=== PATIENT | male | born 1975 | race Two or more races ===

== ENCOUNTER 2019-03-29 12:11 | Inpatient (IN) | payer OTHER ==
[~2019-03-29] VITALS: Ht 170.2 cm; Wt 76.2 kg
[2019-03-29] MEDS ORDERED: CLINDAMYCIN 900 MG in IV D5W 50 ML IV ONE (12:30)
[2019-03-29] MEDS ORDERED: PIPERACILLIN /TAZOBACTAM 3.375 G in IV D5W 50 ML IV ONE (12:30)
[2019-03-29] MEDS ORDERED: IV NS 0.9% 1,000 ML BAG IV ONE ×2 (12:30→14:00)
[2019-03-29] MEDS ORDERED: VANCOMYCIN 1 GM in IV D5W 250 ML IV ONE (12:30)
[2019-03-29 12:33] LABS: HEMOGLOBIN 9.4 g/dL (13.5-17.5); LYMPHOCYTES # (AUTO) 0.9 /CMM (0.8-4.8)
[2019-03-29 12:37] LABS: BASOPHILS % (AUTO) 0.2 % (0.0-2.0); EOSINOPHILS % (AUTO) 0.4 % (0.0-6.0); HEMATOCRIT 29 % (39-51); MEAN CORPUSCULAR HGB CONC 33 g/dl (31.0-36.0); MEAN CORPUSCULAR VOLUME 85 fL (80-96); MONOCYTES % (AUTO) 8.7 % (2.0-12.0); NEUTROPHILS # (AUTO) 19.7 /CMM (1.8-8.9); NEUTROPHILS % (AUTO) 86.7 % (43.0-81.0); PLATELET COUNT (AUTO) 91 /CMM (150-450); RED BLOOD CELL COUNT(AUTO) 3.39 MIL/uL (4.5-6.0); WHITE BLOOD COUNT (AUTO) 22.7 K/uL (4.3-11.0)
--- NOTE | 2019-03-29 12:43 | NUR ---
"[id number], FROM HOME, C/O R LEG PAIN x 3 DAYS, NS 500 ML GIVEN BY EMS" pt [id number], pt on monitor, vss, pending md de leon
[2019-03-29 12:44] LABS: SODIUM SERUM 127 mmol/L (136-145)
[2019-03-29 12:46] LABS: CALCIUM, SERUM 8.3 mg/dL (8.5-10.1); CARBON DIOXIDE 23 mmol/L (21-32); CHLORIDE 96 mmol/L (98-107); GLUCOSE 122 mg/dL (74-106); UREA NITROGEN, BLOOD 38 mg/dL (7-18)
[2019-03-29 12:47] LABS: CREATININE 1.7 mg/dL (0.6-1.3)
[2019-03-29 12:51] LABS: ALANINE AMINOTRANSFERASE 26 U/L (12-78); ALBUMIN 1.9 g/dL (3.4-5.0); ALKALINE PHOSPHATASE 160 U/L (46-116); ASPARTATE AMINOTRANSFERASE 34 U/L (15-37); BILIRUBIN,DIRECT 1.5 mg/dL (0.0-0.2); BILIRUBIN,TOTAL 2.2 mg/dL (0.2-1.0); TOTAL PROTEIN, SERUM 6.7 g/dL (6.4-8.2)
--- NOTE | 2019-03-29 13:01 | NUR ---
CALLED NURSING SUP. FOR MS BED
[2019-03-29 13:13] LABS: BAND % (MANUAL) 10 % (0.0-5.0); EOSINOPHILS % (MANUAL) 1 % (0-4); LYMPHOCYTES % (MANUAL) 2 % (16-48); MONOCYTES % (MANUAL) 9 % (0-11.0); NEUTROPHILS % (MANUAL) 78 (42-76)
--- NOTE | 2019-03-29 13:38 | NUR ---
FAX CLINICALS ONCE MD DICTATION IN CHART [phone]
--- NOTE | 2019-03-29 13:39 | NUR ---
verbal auth from medical case manager given: spoke with syl
--- NOTE | 2019-03-29 13:52 | NUR ---
MS [id number]
--- NOTE | 2019-03-29 14:02 | NUR ---
DR.RUTHERFORD MANUEL RESEARCH AFFILIATE
[2019-03-29] MEDS ORDERED: ACETAMINOPHEN 325 MG TABLET PO PRN (14:30)
[2019-03-29] MEDS ORDERED: MAGNESIUM HYDROXIDE 30 ML UDC PO PRN (14:30)
[2019-03-29] MEDS ORDERED: MAG HYDROX/AL HYDROX/SIMETH 30 ML UDC PO PRN (14:30)
[2019-03-29] MEDS ORDERED: ONDANSETRON HCL/PF 4 MG/2 ML VIAL IVP PRN (14:30)
[2019-03-29] MEDS ORDERED: Z GUARD REMEDY 2 OZ OINT TP PRN (14:30)
[2019-03-29] MEDS ORDERED: FEE PK DOSING 1 MIN EA MC ONE (14:33)
--- NOTE | 2019-03-29 14:55 | NUR ---
report given to teja rn for ramonita pt will be transported to 3rd floor ms
--- NOTE | 2019-03-29 14:59 | NUR ---
MS/RN NOTE THE PATIENT IS RECEIVED ON A GURNEY. ASSISTED THE PATIENT TO BED. PATIENT ALERT AND ORIENTED X4. IN ROOM AIR AND DENIES SOB. RESPIRATION REGULAR AND UNLABORED. PATIENT COMPLAINS RIGHT LOWER LEG PAIN 10/10. RIGHT LOWER LEG NOTED TO BE EDEMATOUS, WARM TO TOUCH, OOZING SEROUS FROM RIGHT LOWER LEG. ALS, NOTED THAT RIGHT LOWER LEG HAS SKIN OPENING. LAC G 20 PATENT AND SALINE LOCKED. PATIENT IS GIVEN ORIENTATION TO THE ROOM/UNIT. HE VERBALIZED UNDERSTANDING. THE PATIENT REFUSES FULL SKIN ASSESSMENT. THE ONLY PICTURE AGREED TO HAVE IS THE RIGHT LOWER LEG ONLY FRONTAL VIEW. EXPLAINED RISKS AND BENEFITS BUT THE PATIENT STILL REFUSED FULL SKIN ASSESSMENT. ASLO, THE PATIENT REFUSED TO WEAR HOSPITAL DOWN. BED LOW AND LOCKED. SIDE RAILS UP X3. CALL LIGHT WITHIN REACH. WILL CONTINUE TO MONITOR.
[2019-03-29] MEDS: IV NS 0.9% 1,000 ML IV SCH (15:12)
[2019-03-29 15:51] VITALS: BP 139/83
--- NOTE | 2019-03-29 16:28 | NUR ---
MS/RN NOTE RECEIVED CALL FROM LAB REPORTING LACTIC ACID LEVEL OF 3.1. PAGED DR HAZEL TO INFORM.
--- NOTE | 2019-03-29 16:33 | NUR ---
MS/RN NOTE RECEIVED NEW ORDER FROM DR TREVIÑO TO REPEAT LACTIC ACID LEVEL AT 2230. THE ORDER IS READ BACK, VERIFIED. NOTED AND CARRIED OUT.
[2019-03-29] MEDS: HYDROCODONE/APAP 5/325MG 1 EACH TABLET PO PRN (17:12)
[2019-03-29] MEDS: PIPERACILLIN /TAZOBACTAM 3.375 G in IV D5W 100 ML IV SCH (18:23)
--- NOTE | 2019-03-29 18:59 | NUR ---
MS/RN NOTE THE PATIENT ALERT AND ORIENTED X4. RECEIVING OXYGEN AT 2L/MIN VIA NASAL CANNULA AND SATURATION IS AT 98%. DENIES SOB. RESPIRATION REGULAR AND UNLABORED. PATIENT COMPLAINS RIGHT LOWER LEG PAIN 5/10. PATIENT DOES NOT WANT PAIN MEDICATION AT THIS TIME. LAC G 20 PATENT AND NS INFUSING AT 100ML/HR AND NO S/S INFILTRATION NOTED. BED LOW AND LOCKED. SIDE RAILS UP X3. CALL LIGHT WITHIN REACH. WILL ENDORSE TO STONE GRADER.
--- NOTE | 2019-03-29 19:15 | NUR ---
CHANGE OF SHIFT REPORT Patient in bed, A/O x4. Appears anxious, denies SOB, on Oxygen at 2L via NC. Right leg warmth, erythema and swelling, weeping, and tender to touch. Educate patient on pain scale and pain management, verbalized understanding and will ask the nurse for pain medication if he needs it. Fall precaution maintained.
--- NOTE | 2019-03-29 19:20 | NUR ---
CHANGE OF SHIFT REPORT Patient in bed, A/O x4. Tolerating RA, denies SOB. Patient will be NPO midnight, possible Perma cath placement with Dr. De La Torre, patient and family aware. Right femoral cath intact, no bleeding. Instruction to use call light for assistance, verbalized understanding.
[2019-03-29 20:00] VITALS: BP 97/48
--- NOTE | 2019-03-30 | NUR ---
CRITICAL LAB RESULT 2255: LAB CALLED FOR LACTIC ACID 2.7 2257: Notified [employer] airspace control officer, spoke with Carl Worthy Np with no new orders at this time.
[2019-03-30] MEDS: VANCOMYCIN 1 GM in IV D5W 250 ML IV SCH ×2 (00:48→13:15)
[2019-03-30] MEDS: PIPERACILLIN /TAZOBACTAM 3.375 G in IV D5W 100 ML IV SCH ×3 (02:28→18:12)
[2019-03-30] MEDS: IV NS 0.9% 1,000 ML IV SCH (02:31)
--- NOTE | 2019-03-30 06:24 | NUR ---
END OF SHIFT REPORT Patient in bed, on low flow oxygen at 2L via NC, denies SOB. Right lower leg swelling, warmth, weeping. Applied new gauze and wrapped with Kerlix. Wound consult to follow. IVF infusing, IV abx as scheduled, no fever. Lactic acid trending down. Hourly rounds, maintained safety.
[2019-03-30 06:27] LABS: BASOPHILS % (AUTO) 0.2 % (0.0-2.0); CALCIUM, SERUM 7.5 mg/dL (8.5-10.1); CREATININE 1.3 mg/dL (0.6-1.3); EOSINOPHILS % (AUTO) 0.5 % (0.0-6.0); HEMATOCRIT 28 % (39-51); HEMOGLOBIN 9.3 g/dL (13.5-17.5); LYMPHOCYTES # (AUTO) 1.3 /CMM (0.8-4.8); LYMPHOCYTES % (AUTO) 6.3 % (20.0-44.0); MAGNESIUM 1.6 mg/dL (1.8-2.4); MEAN CORPUSCULAR HGB CONC 33 g/dl (31.0-36.0); MEAN CORPUSCULAR VOLUME 84 fL (80-96); NEUTROPHILS # (AUTO) 16.6 /CMM (1.8-8.9); PHOSPHORUS 3.4 mg/dL (2.5-4.9); PLATELET COUNT (AUTO) 89 /CMM (150-450); POTASSIUM 3.9 mmol/L (3.5-5.1); RED BLOOD CELL COUNT(AUTO) 3.37 MIL/uL (4.5-6.0)
[2019-03-30 08:00] VITALS: BP 106/58
[2019-03-30] MEDS: HYDROCODONE/APAP 5/325MG 1 EACH TABLET PO PRN ×3 (09:11→23:59)
[2019-03-30] MEDS: Magnesium 1GM/D5W 100ML PREMIX 100 ML IV SCH ×2 (10:55→12:13)
--- NOTE | 2019-03-30 11:42 | NUR ---
WOUND CARE CONSULT: PT PRESENTS WITH RT LOWER LEG SEVERE REDNESS WITH DISCOLORATION, EDEMA AND OPEN AREA, PRESENT ON ADMISSION. RECOMMEND DPM CONSULT. DR ROCHA AWARE OF CONSULT REQUEST. XEROFORM WITH ABD PAD AND GENTLE BURN NET IN PLACE. LEG ELEVATED. WILL SEE PRN. CURRENT MEMO SCORE IS 17. Addendum: 03/30/19 at 1143 by CHRISSY HAQUE WNDNU Amended: Links added.
[2019-03-30 16:00] VITALS: BP 113/83
[2019-03-30] MEDS: IV NS 0.9% 1,000 ML IV PRN (16:40)
[2019-03-30] MEDS: LACTOBACILLUS RHAMNOSUS GG 1 EACH CAP.SPRINK PO SCH (16:40)
--- NOTE | 2019-03-30 17:33 | NUR ---
MS/RN NOTE PATIENT VOMITED X1 YELLOW COLOR AND SMALL AMOUNT. PATIENT COMPLAINS OF NAUSEA. ZOFRAN IS GIVEN PER ORDER.
--- NOTE | 2019-03-30 18:43 | NUR ---
MS/RN NOTE THE PATIENT ALERT AND ORIENTED X4. COMPLAINS RIGHT LOWER LEG PAIN 4/10 BUT DOES NOT WANT PAIN MEDICATION AT THIS TIME. RESPIRATION REGULAR AND UNLABORED. IN ROOM AIR AND SATURATION IS AT 97%. DENIES SOB. RIGHT LOWER LEG DRESSING DONE PER ORDER AND THE PATIENT TOLERATED IT WELL. LFA G 20 PATENT AND NS INFUSING AT 100 ML/HR AND NO S/S INFILTRATION NOTED. BED LOW AND LOCKED. SIDE RAILS UP X3. CALL LIGHT WITHIN REACH. WILL ENDORSE TO PRODUCTION TEAM MEMBER.
[2019-03-30 20:00] VITALS: BP 107/63
--- NOTE | 2019-03-30 20:00 | NUR ---
MS/RN OPENING NOTES RECEIVED PATIENT IN BED, AWAKE, BUT RESTING COMFORTABLY IN BED, REPORTED WOULD LIKE TO GET SOME SLEEP. WAS INFORMED DURING INITIAL START OF CARE THAT MRI PROCEDURE WAS ORDERED, CHECKLIST WAS DONE AND PROVIDED BY PATIENT REPORTED NO HISTORY OF ANY DEVICE SUCH PACEMAKER OR OPERATION AND PROCEDURE. PATIENT ON OXYGEN INTERMITTENT. PATIENT WITH NO S/S OF PAIN NO OBSERVE GUARDING OR GRIMACE. PROVIDED FLUIDS. BED LOCKED, CALL LIGHTS WITHIN REACH. WILL MONITOR.
--- NOTE | 2019-03-30 22:30 | NUR ---
MS/RN NOTES PATIENT REFUSED TO HAVE WOUND CARE REPORTED WOULD LIKE TO SLEEP AND GET SOME REST. WILL MONITOR.
--- NOTE | 2019-03-30 23:59 | NUR ---
MS/RN NOTES PAIN MEDICATIONNORCO 5-325 MG PO REQUESTED PATIENT AWOKEN FROM SLEEP WITH MODERATE PAIN IN RIGHT LEGS.WILL MONITOR.
[2019-03-31] MEDS: VANCOMYCIN 1 GM in IV D5W 250 ML IV SCH ×2 (00:51→12:35)
[2019-03-31] MEDS: PIPERACILLIN /TAZOBACTAM 3.375 G in IV D5W 100 ML IV SCH ×3 (02:02→17:00)
--- NOTE | 2019-03-31 04:05 | NUR ---
MS/RN NOTES DRESSING ON RIGHT LEG DRY AND INTACT.
--- NOTE | 2019-03-31 05:41 | NUR ---
MS/RN NOTES PATIENT ALERT, ORIENTED, DENIES PAIN, ALLOWED FOR WOUND DRESSING CHANGE ON RIGHT LEG AND ABLE TO SWAB WOUND FOR CULTURE. PATIENT TOLERATED AND ATTENDED TO HIS NEEDS. WATER AND FLUIDS PROVIDED.
[2019-03-31 06:21] LABS: BASOPHILS % (AUTO) 0.2 % (0.0-2.0); EOSINOPHILS % (AUTO) 0.9 % (0.0-6.0); HEMATOCRIT 31 % (39-51); LYMPHOCYTES # (AUTO) 1.3 /CMM (0.8-4.8); LYMPHOCYTES % (AUTO) 8.1 % (20.0-44.0); MEAN CORPUSCULAR HGB CONC 33 g/dl (31.0-36.0); MEAN CORPUSCULAR VOLUME 84 fL (80-96); MONOCYTES # (AUTO) 1.6 /CMM (0.1-1.30); MONOCYTES % (AUTO) 9.9 % (2.0-12.0); NEUTROPHILS # (AUTO) 12.8 /CMM (1.8-8.9); NEUTROPHILS % (AUTO) 80.9 % (43.0-81.0); PLATELET COUNT (AUTO) 102 /CMM (150-450); RED BLOOD CELL COUNT(AUTO) 3.63 MIL/uL (4.5-6.0); WHITE BLOOD COUNT (AUTO) 15.8 K/uL (4.3-11.0)
--- NOTE | 2019-03-31 06:33 | NUR ---
MS/RN NOTES PATIENT RESTING EVEN AND UNLABORED, ASLEEP, ABLE TO VERBALIZE NEEDS AND INFORMED THAT NO BM FOR THE PAST 2 DAYS , NEEDED MOM OFFERED, PREFERED TO TAKE LATER IN THE DAY. RIGHT LEG REDNESS AND INFLAMED AND DRESSING HAS BEEN CHANGE, IV INFUSION ON LEFT AC W/ NO S/S OF INFILTRATION. WILL MONITOR AND ENDORSE TO AM RN FOR TIFFANIE.
[2019-03-31 06:56] LABS: CALCIUM, SERUM 7.7 mg/dL (8.5-10.1); CREATININE 1.2 mg/dL (0.6-1.3); MAGNESIUM 1.5 mg/dL (1.8-2.4)
--- NOTE | 2019-03-31 07:30 | NUR ---
RN OPENING NOTE PT WAS RECEIVED SLEEPING IN BED AT LOWEST AND LOCKED POSITION WITH SIDE RAILS UP X2, PER NIGHT RN PT IS A/O X4, BREATHING EVEN AND UNLABORED ON RA, NO S/S OF ANY DISTRESS OR PAIN NOTED, IV IS PATENT AND INTACT, SAFETY PRECAUTIONS IN PLACE, CALL LIGHT WITHIN REACH, WILL MONITOR ACCORDINGLY
[2019-03-31] MEDS: HYDROCODONE/APAP 5/325MG 1 EACH TABLET PO PRN ×2 (07:50→20:00)
[2019-03-31 08:00] VITALS: BP 124/64
[2019-03-31] MEDS: LACTOBACILLUS RHAMNOSUS GG 1 EACH CAP.SPRINK PO SCH ×2 (08:26→16:31)
--- NOTE | 2019-03-31 08:45 | NUR ---
RN NOTE MRI WAS CALLED AT THIS TIME WITH NO ANSWER, MESSAGE WAS LEFT REGARDING WHAT TIME THEY WILL BE TAKING THE PATIENT FOR SCAN, AWAITING CALL BACK
[2019-03-31] MEDS: Magnesium 1GM/D5W 100ML PREMIX 100 ML IV SCH ×2 (10:04→10:59)
--- NOTE | 2019-03-31 10:36 | NUR ---
RN NOTE CALLED MRI AGAIN AT THIS TIME, SPOKE TO [facility] WHO STATED THAT THEY WILL BE ABLE TO TAKE THE PATIENT WITHIN THE NEXT HOUR OR SO AFTER THEY DEAL WILL A CURRENT CASE WHO IS RUNNING LATE, WILL AWAIT FOR PT TO BE TAKEN
--- NOTE | 2019-03-31 12:43 | NUR ---
RN NOTE PT TAKEN DOWN FOR MRI AT THIS TIME
[2019-03-31 16:00] VITALS: BP 125/69
[2019-03-31] MEDS ORDERED: GADOTERIDOL 279.3 MG/ML VIAL IV ONE (17:14)
--- NOTE | 2019-03-31 18:23 | NUR ---
RN CLOSING NOTE PT SLEEPING IN BED AT LOWEST AND LOCKED POSITION WITH SIDE RAILS UP X2, A/O X4 BREATHING EVEN AND UNLABORED WITH NO S/S OF ANY DISTRESS OR PAIN, IV IS PATENT AND INTACT, SAFETY PRECAUTIONS IN PLACE, CALL LIGHT WITHIN REACH, ALL NEEDS ATTENDED TO, WILL ENDORSE TO NIGHT RN FOR TIFFANIE. Addendum: 03/31/19 at 1829 by IMTIAZ SORIA RN PLAN FOR SURGICAL INCISION AND DRAINAGE TOMORROW WITH CONSENTS SIGNED
--- NOTE | 2019-03-31 19:23 | NUR ---
MS/RN OPENING NOTES RECEIVED PATIENT RESTING IN BED, ASLEEP BUT EASILY AROUSES, CAN RESPOND, DINNER TRAY UNTOUCHED, RESPIRATIONS EVEN AND UNLABORED. RIGHT LEG WITH DRESSING PLACED. MONITORING FOR ANY CHANGES AND ANY PAIN CONCERNS. BED LOCKED, CALL LIGHTS WITHIN REACH WILL MONITOR.IV ON LFA GAUGE 20 W/NO S/S OF INFILTRATION. RECEIVED REPORT FROM AM RN FOR PROCEDURE BERNARD INCISSION AND DRAINAGE DUE TO MRI WITH ABSCESS. LAST BM TODAY.
--- NOTE | 2019-03-31 19:53 | NUR ---
MS/RN NOTES PATIENT AWAKE, OBSERVE DRESSING ON RIGHT LEG SOILED, REPORTED SOME PAIN IN SITE. WILL PROVIDE MEDICATION FIRST AND WOUND DRESSING CHANGE.
[2019-03-31 20:00] VITALS: BP 133/71
--- NOTE | 2019-03-31 20:56 | NUR ---
MS/RN NOTES PATIENT PROVIDED DRESSING CHANGE, DRESSING IS SOILED, PATIENT ABLE TO COOPERATE AND AGREED FOR THE TREATMENT, AFTER PAIN MEDICATION GIVEN, REPORTED WANT TO GO [place] TO SKLEEP AND PROVIDED BLANKE AND FLUIDS.BED LOCKED, CALL LIGHTS WITHIN REACH, WILL MONITOR.
[2019-03-31] MEDS: IV NS 0.9% 1,000 ML IV PRN (21:08)
--- NOTE | 2019-03-31 22:40 | NUR ---
MS/RN NOTES PATIENT LEFT AC IV SITE OBSERVED REDNESS, , TO REMOVE PREVIOUS IV AND START ANOTHER ONE, PATIENT REFUSE TO HAVE IT REINSERTED ON THE SIDE DISCUSSED IMPORTANCE THAT IV ANTIBIOTC WILL BE ADMINISTERED LATER ON.
[2019-04-01] MEDS: VANCOMYCIN 1 GM in IV D5W 250 ML IV SCH ×2 (00:04→12:52)
--- NOTE | 2019-04-01 01:00 | NUR ---
MS/RN NOTES PATIENT REASSES LEFT FOREARM,WITH NO MORE REDNESS, OFF LOAD EXTREMITIES,AND ABLE TO CHECK FOR PATENCY, IV ANTIBIOTIC ABLE TO BE INFUSED. (IV vANCOMYCIN).
[2019-04-01] MEDS: PIPERACILLIN /TAZOBACTAM 3.375 G in IV D5W 100 ML IV SCH ×3 (02:18→17:33)
--- NOTE | 2019-04-01 06:50 | NUR ---
MS/RN NOTES PATIENT IN BED, AWAKE, ALERT X3, ABLE TO VERBALIZE NEEDS, RESPIRATIONS EVEN AND UNLABORED, RIGHT LEG WITH DRESSING FOR CELLULITIS, ON NPO FOR PROCEDURE. ABLE TI USE BSC EITH SUPERVISION. ENDORSE TO AM RN FOR TIFFANIE. BED LOCKED, CALL LIGHTS WITHIN REACH.
[2019-04-01 07:22] LABS: BASOPHILS # (AUTO) 0.1 /CMM (0.0-0.2); BASOPHILS % (AUTO) 0.4 % (0.0-2.0); EOSINOPHILS % (AUTO) 1.2 % (0.0-6.0); HEMATOCRIT 30 % (39-51); HEMOGLOBIN 9.9 g/dL (13.5-17.5); LYMPHOCYTES # (AUTO) 1.4 /CMM (0.8-4.8); LYMPHOCYTES % (AUTO) 9.3 % (20.0-44.0); MEAN CORPUSCULAR HGB CONC 33 g/dl (31.0-36.0); MEAN CORPUSCULAR VOLUME 83 fL (80-96); MONOCYTES # (AUTO) 1.6 /CMM (0.1-1.30); MONOCYTES % (AUTO) 10.3 % (2.0-12.0); NEUTROPHILS % (AUTO) 78.8 % (43.0-81.0); PLATELET COUNT (AUTO) 111 /CMM (150-450); RED BLOOD CELL COUNT(AUTO) 3.65 MIL/uL (4.5-6.0); WHITE BLOOD COUNT (AUTO) 15.3 K/uL (4.3-11.0)
--- NOTE | 2019-04-01 07:30 | NUR ---
MS RN OPENING NOTES RECEIVED PATIENT RESTING IN BED COMFORTABLY IN MODERATE HIGH BACK REST,A/O X 4. NOTED WITH RIGHT LEG DRESSING. IV FLUIDS ON LFA #20 WITH NS @ 100ML/HR. PATENT AND INTACT. SAFETY MEASURES IN PLACE, BED IN LOW LOCKED POSITION WITH SIDE RAILS UP X 2, CALL LIGHTS WITHIN REACH. WILL CONTINUE TO MONITOR.
[2019-04-01 07:35] LABS: CALCIUM, SERUM 7.5 mg/dL (8.5-10.1); MAGNESIUM 1.4 mg/dL (1.8-2.4); POTASSIUM 3.7 mmol/L (3.5-5.1)
[2019-04-01 08:00] VITALS: BP_SYST 118; BP_SYST 152; BP_DIAS 67; BP_DIAS 72
[2019-04-01] MEDS: LACTOBACILLUS RHAMNOSUS GG 1 EACH CAP.SPRINK PO SCH ×2 (09:00→17:33)
[2019-04-01] MEDS: Magnesium 1GM/D5W 100ML PREMIX 100 ML IV SCH ×4 (10:36→13:39)
[2019-04-01] MEDS ORDERED: MIDAZOLAM HCL 2 MG/2ML VIAL ONE (13:43)
[2019-04-01] MEDS ORDERED: FENTANYL PF 100MCG/2ML AMPUL ONE ×2 (13:43→15:56)
--- NOTE | 2019-04-01 14:04 | NUR ---
MS RN NOTES PATIENT WAS PICKED UP BY 2 HOSPITAL STAFF VIA HOSPITAL BED TO GO TO [facility]. PATIENT IN STABLE CONDITION AND NOT IN ANY DISTRESS.
[2019-04-01] MEDS ORDERED: POLYMYXIN B SULFATE 500,000 UNITS VIAL IV ONE (14:12)
[2019-04-01] MEDS ORDERED: BACITRACIN 50000 UNITS/VIAL ONE ×3 (14:29→15:07)
[2019-04-01] MEDS ORDERED: SEVOFLURANE 250 ML BOTTLE IH ONE (14:50)
[2019-04-01] MEDS ORDERED: POLYMYXIN B SULFATE 500,000 UNITS VIAL ONE (14:59)
[2019-04-01] MEDS ORDERED: GENTAMICIN 80 MG/2 ML VIAL ONE (15:07)
[2019-04-01] MEDS ORDERED: VANCOMYCIN 1 GM VIAL ONE (15:07)
[2019-04-01] MEDS ORDERED: CLINDAMYCIN 900 MG/6 ML VIAL ONE (15:12)
[2019-04-01 16:00] VITALS: BP 121/73
--- NOTE | 2019-04-01 16:30 | NUR ---
MS RN NOTES PATIENT CAME BACK FROM [facility] WITH 2 HOSPITAL STAFF VIA HOSPITAL BED. REPORT GIVEN BY SURESH SOSA. PATIENT IS NOT IN ANY DISTRESS, V/S WNL. WILL CONTINUE TO MONITOR.
--- NOTE | 2019-04-01 18:43 | NUR ---
MS RN CLOSING NOTES PATIENT RESTING IN BED COMFORTABLY IN MODERATE HIGH BACK REST,A/O X 4. ON RA, TOLERATING WELL. NOTED WITH RIGHT LEG DRESSING, S/P I&D. NO S/S OF ACUTE DISTRESS NOTED THROUGHOUT THE SHIFT. IV FLUIDS ON LFA #20 WITH NS @ 100ML/HR. PATENT AND INTACT. SAFETY MEASURES IN PLACE, BED IN LOW LOCKED POSITION WITH SIDE RAILS UP X 2, CALL LIGHTS WITHIN REACH. WILL ENDORSED TO HEAD GIRLS GOLF COACH NURSE FOR TIFFANIE.
--- NOTE | 2019-04-01 19:15 | NUR ---
MS RN NOTES RECEIVED PT IN BED ASLEEP RESTING IN BED COMFORTABLY BUT EASILY AWOKEN VERBALLY OR BY TOUCH. PT A/O X3 AND ABLE TO MAKE NEEDS KNOWN. PT ON RA AND TOLERATING WELL. PT NOTED WITH RIGHT LEG DRESSING, S/P I&D. RESPIRATIONS EVEN AND UNLABORED WITH NO S/S OF ACUTE DISTRESS OR SOB NOTED. PT WITH LFA #20G PATENT AND INTACT INFUSING @ 100ML/HR. SAFETY MEASURES IN PLACE WITH BED IN LOWEST LOCKED POSITION WITH SIDE RAILS UP X 2. CALL LIGHT WITHIN REACH. CONTINUE TO MONITOR.
[2019-04-01 20:00] VITALS: BP 108/63
[2019-04-02] MEDS: VANCOMYCIN 1 GM in IV D5W 250 ML IV SCH ×2 (00:42→15:01)
[2019-04-02] MEDS: PIPERACILLIN /TAZOBACTAM 3.375 G in IV D5W 100 ML IV SCH ×3 (02:16→17:18)
[2019-04-02 06:20] LABS: BASOPHILS # (AUTO) 0.1 /CMM (0.0-0.2); BASOPHILS % (AUTO) 0.5 % (0.0-2.0); EOSINOPHILS % (AUTO) 1.9 % (0.0-6.0); HEMATOCRIT 24 % (39-51); HEMOGLOBIN 7.9 g/dL (13.5-17.5); LYMPHOCYTES # (AUTO) 1.3 /CMM (0.8-4.8); LYMPHOCYTES % (AUTO) 10.5 % (20.0-44.0); MEAN CORPUSCULAR HGB CONC 34 g/dl (31.0-36.0); MEAN CORPUSCULAR VOLUME 83 fL (80-96); MONOCYTES # (AUTO) 1.3 /CMM (0.1-1.30); MONOCYTES % (AUTO) 10.4 % (2.0-12.0); NEUTROPHILS # (AUTO) 9.4 /CMM (1.8-8.9); NEUTROPHILS % (AUTO) 76.7 % (43.0-81.0); PLATELET COUNT (AUTO) 91 /CMM (150-450); RED BLOOD CELL COUNT(AUTO) 2.83 MIL/uL (4.5-6.0); WHITE BLOOD COUNT (AUTO) 12.3 K/uL (4.3-11.0)
[2019-04-02 06:52] LABS: BILIRUBIN,TOTAL 1.2 mg/dL (0.2-1.0); CREATININE 1.2 mg/dL (0.6-1.3); MAGNESIUM 1.8 mg/dL (1.8-2.4); PHOSPHORUS 3.3 mg/dL (2.5-4.9); POTASSIUM 4.3 mmol/L (3.5-5.1); TOTAL PROTEIN, SERUM 6.6 g/dL (6.4-8.2)
--- NOTE | 2019-04-02 06:56 | NUR ---
MS RN NOTES PT IN BED RESTING COMFORTABLY BUT EASILY AWOKEN VERBALLY OR BY TOUCH. PT A/O X3 AND ABLE TO MAKE NEEDS KNOWN. PT ON RA AND TOLERATING WELL. PT NOTED WITH RIGHT LEG DRESSING, S/P I&D. RESPIRATIONS EVEN AND UNLABORED WITH NO S/S OF ACUTE DISTRESS OR SOB NOTED THROUGHOUT SHIFT. PT WITH LFA #20G PATENT AND INTACT INFUSING @ 100ML/HR. SAFETY MEASURES IN PLACE WITH BED IN LOWEST LOCKED POSITION WITH SIDE RAILS UP X 2. CALL LIGHT WITHIN REACH. WILL ENDORSE TO ONCOMING NURSE FOR TIFFANIE.
[2019-04-02 07:45] LABS: ALBUMIN 1.3 g/dL (3.4-5.0)
[2019-04-02 08:00] VITALS: BP 111/64
--- NOTE | 2019-04-02 08:00 | NUR ---
RN MS OPENING NOTES Patient received on room air, no sob noted, patient denies pain at this time. Patient is comfortable lying down in his bed. LFA 20 with NS @ 100 ml per hour. Patients bed at the lowest setting, call light within reach, side rails up x2.
[2019-04-02 08:14] LABS: EOSINOPHILS % (MANUAL) 1 % (0-4); LYMPHOCYTES % (MANUAL) 9 % (16-48); MONOCYTES % (MANUAL) 9 % (0-11.0); NEUTROPHILS % (MANUAL) 81 (42-76)
[2019-04-02] MEDS: LACTOBACILLUS RHAMNOSUS GG 1 EACH CAP.SPRINK PO SCH ×2 (08:29→16:30)
[2019-04-02] MEDS: DAKINS QUARTER STRENGTH (0.125%) 480 ML BOTTLE TOP SCH (08:30)
[2019-04-02] MEDS: HYDROCODONE/APAP 5/325MG 1 EACH TABLET PO PRN ×2 (09:00→21:27)
[2019-04-02 15:57] VITALS: BP 112/53
--- NOTE | 2019-04-02 18:41 | NUR ---
RN MS CLOSING NOTES Patient remains on room air, no sob noted, patient a/o x3. Vital signs stable, patients surgical incision not showing active bleeding at this time. Patient states that pain is very well under control. Bed at the lowest setting, call light within reach, side rails up x2. Will give report to NOC RN for TIFFANIE bedside.
--- NOTE | 2019-04-02 19:37 | NUR ---
MS RN RECEIVE PT IN BED AWAKE WATCHING TV A/O X 3, RESPIRATION EVEN AND UNLABORED, NO S/S OF DISTRESS. SAFETY MEASURES IN PLACE. WILL CONT TO MTR
[2019-04-02 20:00] VITALS: BP 121/68
[2019-04-02] MEDS: IV NS 0.9% 1,000 ML IV PRN (21:26)
[2019-04-03] MEDS: VANCOMYCIN 1 GM in IV D5W 250 ML IV SCH ×2 (00:16→13:06)
[2019-04-03] MEDS: PIPERACILLIN /TAZOBACTAM 3.375 G in IV D5W 100 ML IV SCH ×2 (01:54→09:04)
--- NOTE | 2019-04-03 06:18 | NUR ---
MS RN ASLEEP AND EASILY AWAKEN, RESPIRATION EVEN AND UNLABORED. NO C/O OF PAIN AT THIS TIME. KEPT CLEAN AND DRY, COMFORTABLE. NEEDS ATTENDED AND ANTICIPATED. TX ORDERED. GOOD SKIN CARE AT ALL TIMES. WILL ENDORSE TO THE NEXT SHIF
[2019-04-03 06:49] LABS: CALCIUM, SERUM 7.2 mg/dL (8.5-10.1); CREATININE 1.2 mg/dL (0.6-1.3); MAGNESIUM 1.5 mg/dL (1.8-2.4)
[2019-04-03 06:52] LABS: BASOPHILS # (AUTO) 0.1 /CMM (0.0-0.2); BASOPHILS % (AUTO) 0.6 % (0.0-2.0); HEMATOCRIT 24 % (39-51); HEMOGLOBIN 7.9 g/dL (13.5-17.5); LYMPHOCYTES # (AUTO) 1.2 /CMM (0.8-4.8); LYMPHOCYTES % (AUTO) 10.5 % (20.0-44.0); MEAN CORPUSCULAR HGB CONC 34 g/dl (31.0-36.0); MEAN CORPUSCULAR VOLUME 83 fL (80-96); MONOCYTES # (AUTO) 0.9 /CMM (0.1-1.30); MONOCYTES % (AUTO) 7.7 % (2.0-12.0); NEUTROPHILS # (AUTO) 8.8 /CMM (1.8-8.9); NEUTROPHILS % (AUTO) 79.2 % (43.0-81.0); PLATELET COUNT (AUTO) 99 /CMM (150-450); RED BLOOD CELL COUNT(AUTO) 2.85 MIL/uL (4.5-6.0); WHITE BLOOD COUNT (AUTO) 11.2 K/uL (4.3-11.0)
--- NOTE | 2019-04-03 07:30 | NUR ---
INITIAL Patient received on room air, no sob noted, patient denies pain at this time. Patient is comfortable lying down in his bed. LFA 22 with NS @ 100 ml per hour. Patients bed at the lowest setting, call light within reach, side rails up x2.
[2019-04-03 08:00] VITALS: BP 120/69
[2019-04-03] MEDS: LACTOBACILLUS RHAMNOSUS GG 1 EACH CAP.SPRINK PO SCH ×2 (08:43→16:35)
[2019-04-03] MEDS: DAKINS QUARTER STRENGTH (0.125%) 480 ML BOTTLE TOP SCH (08:44)
[2019-04-03] MEDS: Magnesium 1GM/D5W 100ML PREMIX 100 ML IV SCH ×4 (09:47→12:29)
[2019-04-03] MEDS: IV NS 0.9% 1,000 ML IV PRN (12:59)
[2019-04-03 16:00] VITALS: BP 120/60
--- NOTE | 2019-04-03 17:31 | NUR ---
CLOSING Patient received on room air, no sob noted, patient denies pain at this time. Patient is comfortable lying down in his bed. LFA 20 with NS @ 100 ml per hour. Patients bed at the lowest setting, call light within reach, side rails up x2.
[2019-04-03] MEDS ORDERED: CLINDAMYCIN IV RTU IN D5W 900 MG/50 ML PIGGYBACK IV SCH (18:00)
[2019-04-03] MEDS: CLINDAMYCIN 900 MG in IV D5W 50 ML IV SCH (18:05)
--- NOTE | 2019-04-03 19:15 | NUR ---
RN OPENING NOTE PM BEDSIDE REPORT RECIEVED FROM MELANIE PRINCE. Patient IN BED on room air, NO sob noted, PATIENT COMPLAINING THAT HE CANT GET ANY SLEEP BECAUSE STAFF KEEPS COMING AND GOING AND DISTURBING HIM. LFA 22 with NS INFUSING WITH NO S/S OF COMPLICATIONS. bed at the lowest setting, call light within reach, side rails up x2 PATIENT VERBALIZED UNDERSTANDING TO CALL FOR ASSISTANCE WHEN NEEDED. .
[2019-04-03 20:00] VITALS: BP 124/70
--- NOTE | 2019-04-03 20:41 | NUR ---
ASSIGNMENT CHANGE. REPORT GIVEN TO YULIANA PRINCE FOR CONTINUITY OF CARE.
--- NOTE | 2019-04-03 20:42 | NUR ---
TECHNOLOGY RECRUITER OF CARE RECEIVED PATIENT FROM SURESH SKELTON AT 2035. PATIENT IN BED ASLEEP, RESTING COMFORTABLY, EASILY AROUSABLE TO VOICE. ON ROOM AIR, TOLERATING WELL. IV SITE INTACT AND PATENT NO REDNESS, NO INFILTRATION. NO FACIAL GRIMACING INDICATING PAIN OR DISCOMFORT AT THIS TIME. SAFETY PRECAUTIONS IMPLEMENTED; CALL LIGHT WITHIN REACH, BED LOWEST POSITION, BED LOCKED, SIDE RAILS UP X2.
[2019-04-04] MEDS: IV NS 0.9% 1,000 ML IV PRN ×2 (01:01→17:11)
[2019-04-04] MEDS: CLINDAMYCIN 900 MG in IV D5W 50 ML IV SCH ×3 (01:01→17:01)
--- NOTE | 2019-04-04 01:05 | NUR ---
RN NOTES PATIENT DOES NOT WANT TO BE WOKEN UP CONSTANTLY. PATIENT DOES NOT WANT TO BE DISTURBED FROM HIS SLEEP. PATIENT STATES IT IS SO EARLY IN THE MORNING, I CANNOT GET ANY SLEEP. PATIENT REFUSES FOOT CARE TO BE EXAMINED AT THIS TIME.
--- NOTE | 2019-04-04 06:53 | NUR ---
RN NOTES NO SIGNS OF ACTIVE BLEEDING FROM SX SITE.
--- NOTE | 2019-04-04 06:55 | NUR ---
RN CLOSING NOTES PATIENT CURRENTLY ASLEEP, EASILY AROUSABLE TO VOICE. NO ACUTE CHANGES AT THIS TIME. NO SIGNS OF FACIAL GRIMACING INDICATING PAIN OR DISCOMFORT. IV SITE INTACT AND PATENT, NO REDNESS OR INFILTRATION. PATIENT KEPT CLEAN, DRY AND COMFORTABLE. TREATMENT DONE ORDERED. MAINTAINED GOOD SKIN CARE THROUGHOUT MY SHIFT. SAFETY PRECAUTIONS IMPLEMENTED; CALL LIGHT WITHIN REACH, BED LOWEST POSITION, BED LOCKED, SIDE RAILS UP X2. ALL NEEDS ATTENDED TO AT THIS TIME. WILL ENDORSE TO DAYSHIFT NURSE FOR CONTINUITY OF CARE.
[2019-04-04 07:02] LABS: BASOPHILS % (AUTO) 0.4 % (0.0-2.0); EOSINOPHILS % (AUTO) 1.8 % (0.0-6.0); HEMATOCRIT 22 % (39-51); HEMOGLOBIN 7.5 g/dL (13.5-17.5); LYMPHOCYTES # (AUTO) 1.1 /CMM (0.8-4.8); LYMPHOCYTES % (AUTO) 11.3 % (20.0-44.0); MEAN CORPUSCULAR HGB CONC 34 g/dl (31.0-36.0); MEAN CORPUSCULAR VOLUME 83 fL (80-96); MONOCYTES # (AUTO) 0.6 /CMM (0.1-1.30); MONOCYTES % (AUTO) 6.8 % (2.0-12.0); NEUTROPHILS # (AUTO) 7.5 /CMM (1.8-8.9); NEUTROPHILS % (AUTO) 79.7 % (43.0-81.0); PLATELET COUNT (AUTO) 98 /CMM (150-450); RED BLOOD CELL COUNT(AUTO) 2.67 MIL/uL (4.5-6.0); WHITE BLOOD COUNT (AUTO) 9.4 K/uL (4.3-11.0)
--- NOTE | 2019-04-04 07:29 | NUR ---
RN OPENING NOTE PT WAS RECEIVED SLEEPING IN BED AT LOWEST AND LOCKED POSITION WITH SIDE RAILS UP X2, PT IS A/O X4, BREATHING EVEN AND UNLABORED ON RA, NO S/S OF ANY DISTRESS OR PAIN NOTED, IV IS PATENT AND INTACT, SAFETY PRECAUTIONS IN PLACE, CALL LIGHT WITHIN REACH, WILL MONITOR ACCORDINGLY
[2019-04-04 07:35] LABS: CALCIUM, SERUM 7.3 mg/dL (8.5-10.1); CREATININE 0.9 mg/dL (0.6-1.3); MAGNESIUM 1.7 mg/dL (1.8-2.4); PHOSPHORUS 3.1 mg/dL (2.5-4.9); POTASSIUM 4.2 mmol/L (3.5-5.1)
[2019-04-04 08:00] VITALS: BP 121/67
[2019-04-04] MEDS: LACTOBACILLUS RHAMNOSUS GG 1 EACH CAP.SPRINK PO SCH ×2 (08:29→16:56)
[2019-04-04] MEDS: DAKINS QUARTER STRENGTH (0.125%) 480 ML BOTTLE TOP SCH (08:29)
[2019-04-04] MEDS: HYDROCODONE/APAP 5/325MG 1 EACH TABLET PO PRN (09:38)
[2019-04-04] MEDS: Magnesium 1GM/D5W 100ML PREMIX 100 ML IV SCH ×2 (11:22→12:09)
[2019-04-04 16:07] VITALS: BP 126/62
--- NOTE | 2019-04-04 18:28 | NUR ---
RN CLOSING NOTE PT IN BED AT LOWEST AND LOCKED POSITION WITH SIDE RAILS UP X2, PT IS A/O X4, BREATHING EVEN AND UNLABORED ON RA WITH NO S/S OF ANY DISTRESS OR PAIN, IV IS PATENT AND INTACT, CONSENTS SIGNED FOR DEBRIDEMENT TOMORROW, SAFETY PRECAUTIONS IN PLACE, CALL LIGHT WITHIN REACH, ALL NEEDS ATTENDED TO, WILL ENDORSE TO NIGHT RN FOR TIFFANIE.
--- NOTE | 2019-04-04 19:30 | NUR ---
MS RN OPENING NOTE RECEIVED PATIENT IN BED. A/OX3. TOLERATING ROOM AIR. RESPIRATIONS ARE EVEN AND UNLABORED. NO S/S OF SOB. DENIES PAIN AT THIS TIME. NO APPARENT DISTRESS. IV ACCESS IN LFA #22 PATENT AND RUNNING NS@100ML/HR. BED IS LOW AND LOCKED, SIDE RAILS UP X2, HOB ELEVATED 80 DEGREES. CALL LIGHT WITHIN REACH. WILL CONTINUE TO MONITOR.
[2019-04-04 20:00] VITALS: BP 131/71
[2019-04-04 20:26] VITALS: BP 131/71
[2019-04-04] MEDS: HYDROCODONE/APAP 10/325MG 1 EA TABLET PO PRN (20:31)
--- NOTE | 2019-04-04 20:31 | NUR ---
MS RN NOTE ADMINISTERED PRN NORCO 10/325 FOR PAIN 9/10 IN RIGHT COOK (SITE OF CELLULITIS). WILL CONTINUE TO MONITOR.
[2019-04-05] MEDS: CLINDAMYCIN 900 MG in IV D5W 50 ML IV SCH ×3 (01:12→17:15)
--- NOTE | 2019-04-05 06:53 | NUR ---
MS RN CLOSING NOTE PATIENT IN BED. A/OX3. REMAINS TOLERATING ROOM AIR. RESPIRATIONS ARE EVEN AND UNLABORED. NO S/S OF SOB NOTED. MANAGED PAIN WITH 10/325 NORCO. NO DISTRESS NOTED. IV ACCESS MAINTAINED IN LFA #22 PATENT AND RUNNING NS@100ML/HR. BED REMAINS LOW AND LOCKED, SIDE RAILS UP X2, HOB ELEVATED 80 DEGREES. CALL LIGHT WITHIN REACH. WILL ENDORSE TO NEXT SHIFT.
[2019-04-05 07:03] LABS: BASOPHILS % (AUTO) 0.6 % (0.0-2.0); EOSINOPHILS % (AUTO) 2.8 % (0.0-6.0); HEMATOCRIT 22 % (39-51); HEMOGLOBIN 7.3 g/dL (13.5-17.5); LYMPHOCYTES # (AUTO) 1.5 /CMM (0.8-4.8); LYMPHOCYTES % (AUTO) 19.7 % (20.0-44.0); MEAN CORPUSCULAR HGB CONC 33 g/dl (31.0-36.0); MEAN CORPUSCULAR VOLUME 84 fL (80-96); MONOCYTES # (AUTO) 0.6 /CMM (0.1-1.30); MONOCYTES % (AUTO) 7.3 % (2.0-12.0); NEUTROPHILS # (AUTO) 5.5 /CMM (1.8-8.9); NEUTROPHILS % (AUTO) 69.6 % (43.0-81.0); PLATELET COUNT (AUTO) 109 /CMM (150-450); RED BLOOD CELL COUNT(AUTO) 2.61 MIL/uL (4.5-6.0); WHITE BLOOD COUNT (AUTO) 7.8 K/uL (4.3-11.0)
[2019-04-05 07:22] LABS: CALCIUM, SERUM 7.4 mg/dL (8.5-10.1); CREATININE 0.9 mg/dL (0.6-1.3); POTASSIUM 3.9 mmol/L (3.5-5.1)
--- NOTE | 2019-04-05 07:25 | NUR ---
MS RN INITIAL NOTES Report received. Patient received in bed, sleeping comfortably, easily aroused. No S&S of distress. No facial grimacing noted. Safety measures in place. Will continue to monitor and assess patient
[2019-04-05] MEDS: IV NS 0.9% 1,000 ML IV PRN (07:36)
[2019-04-05 08:00] VITALS: BP 114/68
[2019-04-05] MEDS: LACTOBACILLUS RHAMNOSUS GG 1 EACH CAP.SPRINK PO SCH ×2 (09:04→17:15)
[2019-04-05] MEDS: HYDROCODONE/APAP 5/325MG 1 EACH TABLET PO PRN ×2 (09:26→20:45)
[2019-04-05] MEDS: DAKINS QUARTER STRENGTH (0.125%) 480 ML BOTTLE TOP SCH (14:11)
[2019-04-05 15:58] VITALS: BP 134/81
--- NOTE | 2019-04-05 19:30 | NUR ---
MS RN OPENING NOTE RECEIVED PATIENT IN BED. A/O X3. TOLERATING ROOM AIR. RESPIRATIONS ARE EVEN AND UNLABORED. NO SOB NOTED. DENIES PAIN AT THIS TIME. NO APPARENT DISTRESS. IV ACCESS IN LFA #20 RUNNING NS @100ML/HR. BED IS LOW AND LOCKED, HOB ELEVATED 30 DEGREES, SIDE RAILS UPX2. CALL LIGHT WITHIN REACH. WILL CONTINUE TO MONITOR.
[2019-04-05 20:00] VITALS: BP 127/84
--- NOTE | 2019-04-05 20:45 | NUR ---
MS RN NOTE ADMINISTERED PRN NORCO 5/325 FOR PAIN 10 IN RLE AT I&D SITE. WILL CONTINUE TO MONITOR.
[2019-04-06] VITALS (12 sets, daily range): BP systolic 99–130; BP diastolic 57–82
[2019-04-06] MEDS: CLINDAMYCIN 900 MG in IV D5W 50 ML IV SCH ×3 (01:27→20:16)
[2019-04-06] MEDS: IV NS 0.9% 1,000 ML IV PRN (02:30)
--- NOTE | 2019-04-06 06:18 | NUR ---
MS RN CLOSING NOTE PATIENT IN BED. A/O X3. TOLERATING ROOM AIR. RESPIRATIONS ARE EVEN AND UNLABORED. NO SOB NOTED THROUGHOUT SHIFT. TREATED PAIN WITH NORCO 5/325. NO DISTRESS NOTED. IV ACCESS MAINTAINED IN LFA #20 RUNNING NS @100ML/HR. PATIENT HAS NPO SINCE MIDNIGHT. BED REMAINS LOW AND LOCKED, HOB ELEVATED 30 DEGREES, SIDE RAILS UPX2. CALL LIGHT WITHIN REACH. WILL ENDORSE TO NEXT SHIFT FOR TIFFANIE.
[2019-04-06] MEDS ORDERED: MIDAZOLAM HCL 2 MG/2ML VIAL ONE (06:44)
[2019-04-06] MEDS ORDERED: FENTANYL PF 100MCG/2ML AMPUL ONE (06:44)
[2019-04-06] MEDS ORDERED: FAMOTIDINE/PF INJ 20 MG/2 ML VIAL IV ONE (06:45)
[2019-04-06 06:52] LABS: BASOPHILS # (AUTO) 0.1 /CMM (0.0-0.2); BASOPHILS % (AUTO) 0.8 % (0.0-2.0); EOSINOPHILS % (AUTO) 2.5 % (0.0-6.0); LYMPHOCYTES # (AUTO) 1.4 /CMM (0.8-4.8); MEAN CORPUSCULAR HGB CONC 34 g/dl (31.0-36.0); MEAN CORPUSCULAR VOLUME 85 fL (80-96); MONOCYTES # (AUTO) 0.6 /CMM (0.1-1.30); MONOCYTES % (AUTO) 7.9 % (2.0-12.0); NEUTROPHILS # (AUTO) 5.3 /CMM (1.8-8.9); NEUTROPHILS % (AUTO) 70.8 % (43.0-81.0); PLATELET COUNT (AUTO) 111 /CMM (150-450); RED BLOOD CELL COUNT(AUTO) 2.41 MIL/uL (4.5-6.0); WHITE BLOOD COUNT (AUTO) 7.6 K/uL (4.3-11.0)
[2019-04-06] MEDS ORDERED: ANESTHESIA TRAY IN PYXIS 1 EA TRAY MC ONE (06:57)
[2019-04-06 07:02] LABS: BILIRUBIN,TOTAL 1.1 mg/dL (0.2-1.0); CALCIUM, SERUM 7.3 mg/dL (8.5-10.1); CREATININE 0.9 mg/dL (0.6-1.3); MAGNESIUM 1.4 mg/dL (1.8-2.4); PHOSPHORUS 4.2 mg/dL (2.5-4.9); POTASSIUM 3.8 mmol/L (3.5-5.1); TOTAL PROTEIN, SERUM 7.3 g/dL (6.4-8.2)
[2019-04-06 07:23] LABS: ALBUMIN 1.4 g/dL (3.4-5.0)
[2019-04-06] MEDS ORDERED: BACITRACIN 50000 UNITS/VIAL ONE (07:35)
[2019-04-06] MEDS ORDERED: VANCOMYCIN 1 GM VIAL ONE (07:35)
--- NOTE | 2019-04-06 07:49 | NUR ---
RN NOTES PER ADJUNCT FACULTY MATHEMATICS DEPARTMENT NURSE. PATIENT WENT TO OR FOR I&D WILL AWAIT THEIR RETURN.
[2019-04-06] MEDS ORDERED: BUPIVACAINE 0.5 % PF 150 MG/30 ML VIAL ONE (07:54)
[2019-04-06] MEDS ORDERED: LIDOCAINE HCL/PF 1% 30 ML SDV ONE (08:00)
[2019-04-06] MEDS: DAKINS QUARTER STRENGTH (0.125%) 480 ML BOTTLE TOP SCH (09:00)
[2019-04-06] MEDS: HYDROCODONE/APAP 10/325MG 1 EA TABLET PO PRN (09:07)
[2019-04-06] MEDS: LACTOBACILLUS RHAMNOSUS GG 1 EACH CAP.SPRINK PO SCH ×2 (09:07→16:40)
--- NOTE | 2019-04-06 09:16 | NUR ---
RN NOTES PATIENT RETURNED FROM RECOVERY. VITAL SIGNS STABLE. PT WRITHING IN BED. PATIENT GIVEN PO NORCO 10/325. WILL CONTINUE TO MONITOR. 0900 WOUND CARE NOT CARRIED DT PATIENT HAVE I&D IN OR TODAY. SAFETY PRECAUTIONS IN PLACE, BED IN LOWEST LOCKED POSITION, X2 SIDE RAILS UP AND CALL LIGHT WITHIN REACH. WILL CONTINUE TO MONITOR.
[2019-04-06 09:20] LABS: HEMATOCRIT 20 % (39-51); HEMOGLOBIN 6.9 g/dL (13.5-17.5)
--- NOTE | 2019-04-06 09:36 | NUR ---
LIVE TRUCK TECHNICIAN RIGHT LEG WOUND TREATMENT ORDERS CLARIFIED WITH DR ROCHA. DISCUSSED WITH NURSING STAFF AND CASE MANAGEMENT.
[2019-04-06] MEDS: Magnesium 1GM/D5W 100ML PREMIX 100 ML IV SCH ×4 (10:09→13:14)
[2019-04-06 10:26] LABS: BAND % (MANUAL) 1 % (0.0-5.0); EOSINOPHILS % (MANUAL) 2 % (0-4); LYMPHOCYTES % (MANUAL) 5 % (16-48); MONOCYTES % (MANUAL) 3 % (0-11.0); NEUTROPHILS % (MANUAL) 89 (42-76)
--- NOTE | 2019-04-06 12:17 | NUR ---
RN NOTES INFORMED DR CARDOZA OF PTS HGB OF 6.9.
[2019-04-06] MEDS ORDERED: ACETAMINOPHEN 325 MG TABLET PO ONE ×2 (13:00→17:00)
[2019-04-06] MEDS ORDERED: diphenhydrAMINE HCL 50 MG/ML VIAL IV ONE ×2 (13:00→17:00)
[2019-04-06] MEDS: ENSURE ENLIVE CHOC 237 ML CAN PO SCH (17:20)
--- NOTE | 2019-04-06 19:18 | NUR ---
RN CLOSING NOTES PT RESTING IN BED. NO APPARENT S/S OF PAIN, DISTRESS OR SOB. PT HAS 1 UNIT PRBC INFUSING. NO REACTIONS NOTED. SAFETY PRECAUTIONS IN PLACE, BED IN LOWEST LOCKED POSITION, X2 SIDE RAILS UP AND CALL LIGHT WITHIN REACH. WILL ENDORSE TO FLIGHT RADIO OPERATOR NURSE FOR CONTINUITY OF CARE.
--- NOTE | 2019-04-06 19:20 | NUR ---
RN MS OPENING NOTES RECEIVED PATIENT IN BED AWAKE ALERT AND ORIENTED X4, RESPIRATIONS EVEN AND UNLABORED WITH EQUAL RISE AND FALL OF CHEST, DENIES ANY PAIN OR DISCOMFORT AT THIS TIME, CURRENTLY HAD BLOOD TRANSFUSION RUNNING, NO ADVERSE REACTIONS NOTED AT THIS TIME, VITAL SIGNS REMAIN WNL. PATIENT IS SCHEDULED TO HAVE A SECOND UNIT TO BE TRANSFUSED ORDERED, PT IS AWARE, IV SITE TO LEFT FA #20 G INTACT AND PATENT, NO REDNESS, NO INFILTRATION PRESENT, URINAL AT BEDSIDE, DRESSING TO RLE REMAINS INTACT AND CLEAN, ORIENTED TO STAFF AND CALL LIGHT AND KEPT WITHIN REACH, SAFETY PRECAUTIONS IN PLACE, LOW BED AND LOCKED, ALL NEEDS ATTENDED AT THIS TIME, WILL CONTINUE TO MONITOR AND ATTEND TO NEEDS.
--- NOTE | 2019-04-06 20:05 | NUR ---
RN MS NOTES 1ST UNIT OF PRBC COMPLETED, NO ADVERSE REACTIONS, DURING TRANSFUSION , END VITAL SIGNS 115/74,85,97.7,97%,RA,18. WILL INFUSE ABX SCHEDULED FOR 1800 CLEOCIN AT THIS TIME.
[2019-04-06] MEDS: HEPARIN SODIUM, PORCINE 5000 UNITS/1 ML VIAL SQ SCH (21:00)
[2019-04-06] MEDS: HYDROCODONE/APAP 5/325MG 1 EACH TABLET PO PRN (23:26)
--- NOTE | 2019-04-06 23:36 | NUR ---
RN MS NOTES PATIENT COMPLAINT OF PAIN TO RIGHT LEG 6/10 REQUESTING FOR PAIN MEDICATION NORCO OFFERED, PATIENT AGREED, PRN NORCO 5-325 GIVEN ORDERED, WILL CONTINUE TO MONITOR.
[2019-04-07] VITALS (8 sets, daily range): BP systolic 107–143; BP diastolic 55–72
[2019-04-07] MEDS: CLINDAMYCIN 900 MG in IV D5W 50 ML IV SCH ×3 (03:11→17:28)
[2019-04-07] MEDS: IV NS 0.9% 1,000 ML IV PRN (03:11)
--- NOTE | 2019-04-07 03:23 | NUR ---
RN MS NOTES 2ND BAG OF PRBC DONE, TOLERATED WELL, NO ADVERSE REACTIONS VS WNL.
--- NOTE | 2019-04-07 06:21 | NUR ---
SURESH MS OPENING NOTES PATIENT IN BED AWAKE ALERT AND ORIENTED X4, RESPIRATIONS EVEN AND UNLABORED WITH EQUAL RISE AND FALL OF CHEST, DENIES ANY PAIN OR DISCOMFORT AT THIS TIME, S/P BLOOD TRANSFUSION ORDERED WITH NO ADVERSE REACTIONS NOTED VITAL SIGNS REMAINED WNL. IV SITE TO LEFT FA #20 G INTACT AND PATENT, NO REDNESS, NO INFILTRATION PRESENT, IVF RUNNING ORDERED,URINAL AT BEDSIDE, DRESSING TO RLE REMAINS INTACT AND CLEAN, LINENS CHANGED, CALL LIGHT AND KEPT WITHIN REACH, SAFETY PRECAUTIONS IN PLACE, LOW BED AND LOCKED, ALL NEEDS ATTENDED AT THIS TIME, WILL CONTINUE TO MONITOR AND ATTEND TO NEEDS AND ENDORSE TO NEXT SHIFT. Addendum: 04/07/19 at 0679 by MAY ROBLES RN CLARIFICATION SURESH MS CLOSING NOTES
--- NOTE | 2019-04-07 06:46 | NUR ---
RN MS NOTES PATIENT COMPLAINT OF FEELING OF BLOATED, "GASES IN STOMACH". REQUESTING FOR MEDICATION. MAALOX OFFERED PATIENT AGREED PRN MAALOX GIVEN ORDERED, PATIENT ALSO PASSED GAS.
[2019-04-07 07:09] LABS: BASOPHILS # (AUTO) 0.1 /CMM (0.0-0.2); BASOPHILS % (AUTO) 1.2 % (0.0-2.0); EOSINOPHILS % (AUTO) 2.3 % (0.0-6.0); HEMATOCRIT 24 % (39-51); HEMOGLOBIN 8.3 g/dL (13.5-17.5); LYMPHOCYTES # (AUTO) 1.3 /CMM (0.8-4.8); MEAN CORPUSCULAR HGB CONC 34 g/dl (31.0-36.0); MEAN CORPUSCULAR VOLUME 85 fL (80-96); MONOCYTES # (AUTO) 0.5 /CMM (0.1-1.30); MONOCYTES % (AUTO) 8.4 % (2.0-12.0); NEUTROPHILS # (AUTO) 4.3 /CMM (1.8-8.9); NEUTROPHILS % (AUTO) 68.1 % (43.0-81.0); PLATELET COUNT (AUTO) 115 /CMM (150-450); RED BLOOD CELL COUNT(AUTO) 2.84 MIL/uL (4.5-6.0); WHITE BLOOD COUNT (AUTO) 6.4 K/uL (4.3-11.0)
[2019-04-07 07:21] LABS: CALCIUM, SERUM 7.2 mg/dL (8.5-10.1); MAGNESIUM 1.4 mg/dL (1.8-2.4); POTASSIUM 3.6 mmol/L (3.5-5.1)
[2019-04-07] MEDS: ENSURE ENLIVE CHOC 237 ML CAN PO SCH ×3 (08:00→16:40)
[2019-04-07] MEDS: LACTOBACILLUS RHAMNOSUS GG 1 EACH CAP.SPRINK PO SCH ×2 (09:50→16:40)
[2019-04-07] MEDS: HEPARIN SODIUM, PORCINE 5000 UNITS/1 ML VIAL SQ SCH ×2 (09:52→21:00)
[2019-04-07] MEDS: HYDROCODONE/APAP 5/325MG 1 EACH TABLET PO PRN ×2 (09:57→20:23)
[2019-04-07] MEDS: Magnesium 1GM/D5W 100ML PREMIX 100 ML IV SCH ×3 (11:49→14:30)
[2019-04-07] MEDS: HYDROCODONE/APAP 10/325MG 1 EA TABLET PO PRN (14:25)
--- NOTE | 2019-04-07 19:05 | NUR ---
RN MS OPENING NOTES RECEIVED PATIENT IN BED AWAKE ALERT AND ORIENTED X4, RESPIRATIONS EVEN AND UNLABORED WITH EQUAL RISE AND FALL OF CHEST, DENIES ANY PAIN OR DISCOMFORT AT THIS TIME, IV SITE TO LEFT FA #20 G INTACT AND PATENT, NO REDNESS, NO INFILTRATION PRESENT, URINAL AT BEDSIDE, AND TOILETING AND FLUIDS OFFERED, DRESSING TO RLE REINFORCED TOLERATED WELL, REMAINS INTACT AND CLEAN, ORIENTED TO STAFF AND CALL LIGHT AND KEPT WITHIN REACH, SAFETY PRECAUTIONS IN PLACE, LOW BED AND LOCKED, ALL NEEDS ATTENDED AT THIS TIME, WILL CONTINUE TO MONITOR AND ATTEND TO NEEDS.
--- NOTE | 2019-04-07 20:23 | NUR ---
RN MS NOTES PATIENT COMPLAINT OF PAIN TO RIGHT LEG REQUESTING FOR PAIN MEDICATION, NORCO 5-325 OFFERED, AND GIVEN ORDERED, VS WNL. WILL CONTINUE TO MONITOR FOR EFFECTIVENESS.
--- NOTE | 2019-04-07 21:20 | NUR ---
RN MS NOTES PATIENT REFUSED HEPARIN SQ X3 DESPITE EXPLANATION RISKS AND BENEFITS,
[2019-04-08] MEDS: CLINDAMYCIN 900 MG in IV D5W 50 ML IV SCH ×2 (02:04→11:24)
[2019-04-08] MEDS: IV NS 0.9% 1,000 ML IV PRN (02:04)
[2019-04-08] MEDS: HYDROCODONE/APAP 10/325MG 1 EA TABLET PO PRN (05:22)
--- NOTE | 2019-04-08 05:25 | NUR ---
RN MS NOTES PATIENT COMPLAINT OF PAIN TO RIGHT LOWER LEG WOUND SITE 02/06 ,REQUESTING FOR NORCO PRN NORCO OFFERED AND GIVEN, LIGHTS DIMMED WILL CONTINUE TO MONITOR FOR EFFECTIVENESS. DRESSING REMAINS CLEAN DRY AND INTACT.
--- NOTE | 2019-04-08 06:24 | NUR ---
RN MS CLOSING NOTES PATIENT IN BED AWAKE ALERT AND ORIENTED X4, RESPIRATIONS EVEN AND UNLABORED WITH EQUAL RISE AND FALL OF CHEST, DENIES ANY PAIN OR DISCOMFORT AT THIS TIME, IV SITE TO LEFT FA #20 G INTACT AND PATENT, NO REDNESS, NO INFILTRATION PRESENT, URINAL AT BEDSIDE, TOILETING AND FLUIDS OFFERED, DRESSING TO RLE REMAINS CLEAN DRY AND INTACT, CALL LIGHT KEPT WITHIN REACH, SAFETY PRECAUTIONS IN PLACE, LOW BED AND LOCKED, ALL NEEDS ATTENDED AT THIS TIME, WILL CONTINUE TO MONITOR AND ENDORSE TO NEXT SHIFT.
[2019-04-08 07:10] LABS: BASOPHILS # (AUTO) 0.1 /CMM (0.0-0.2); BASOPHILS % (AUTO) 1.2 % (0.0-2.0); EOSINOPHILS % (AUTO) 3.2 % (0.0-6.0); HEMATOCRIT 24 % (39-51); HEMOGLOBIN 8.1 g/dL (13.5-17.5); LYMPHOCYTES # (AUTO) 1.2 /CMM (0.8-4.8); LYMPHOCYTES % (AUTO) 21.3 % (20.0-44.0); MEAN CORPUSCULAR HGB CONC 34 g/dl (31.0-36.0); MEAN CORPUSCULAR VOLUME 85 fL (80-96); MONOCYTES # (AUTO) 0.6 /CMM (0.1-1.30); MONOCYTES % (AUTO) 9.7 % (2.0-12.0); NEUTROPHILS # (AUTO) 3.7 /CMM (1.8-8.9); NEUTROPHILS % (AUTO) 64.6 % (43.0-81.0); PLATELET COUNT (AUTO) 128 /CMM (150-450); RED BLOOD CELL COUNT(AUTO) 2.84 MIL/uL (4.5-6.0); WHITE BLOOD COUNT (AUTO) 5.8 K/uL (4.3-11.0)
--- NOTE | 2019-04-08 07:20 | NUR ---
RN OPENING NOTES RECEIVED PATIENT IN BED AWAKE ALERT AND ORIENTED X4, RESPIRATIONS EVEN AND UNLABORED WITH EQUAL RISE AND FALL OF CHEST, DENIES ANY PAIN OR DISCOMFORT AT THIS TIME, IV ACCESS INTACT AND PATENT, NO REDNESS, NO INFILTRATION. URINAL AT BEDSIDE, AND TOILETING AND FLUIDS OFFERED, DRESSING TO RLE C/D/I.. SAFETY PRECAUTIONS IN PLACE, LOW BED AND LOCKED, SIDERAILS UPX2,CALL LIGHT IN REACH. WILL CONTINUE TO MONITOR AND ATTEND TO NEEDS.
[2019-04-08 07:23] LABS: CALCIUM, SERUM 7.3 mg/dL (8.5-10.1); MAGNESIUM 1.6 mg/dL (1.8-2.4); POTASSIUM 3.7 mmol/L (3.5-5.1)
[2019-04-08 08:00] VITALS: BP 112/55
[2019-04-08] MEDS: HEPARIN SODIUM, PORCINE 5000 UNITS/1 ML VIAL SQ SCH (09:00)
[2019-04-08] MEDS: Magnesium 1GM/D5W 100ML PREMIX 100 ML IV SCH ×4 (09:20→15:10)
[2019-04-08] MEDS: ENSURE ENLIVE CHOC 237 ML CAN PO SCH ×2 (09:20→12:35)
[2019-04-08] MEDS: LACTOBACILLUS RHAMNOSUS GG 1 EACH CAP.SPRINK PO SCH (09:21)
[2019-04-08] MEDS ORDERED: CLIN300C11 PO (15:45)
[2019-04-08] MEDS ORDERED: OXYC-117 PO (15:45)
[2019-04-08 16:00] VITALS: BP 126/83
--- NOTE | 2019-04-08 16:00 | NUR ---
wound care rendered. photos taken and placed it in the chart.
--- NOTE | 2019-04-08 18:30 | NUR ---
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 dischargd instructions given, verbalized understanding. dc paperwrok and educatoin materials provided. all belongings returned, form signed. patient askd for supplies, supplies for wound care provided, also told patient that [facility] will be in touch with him for wound care. iv access removed, no complications. name band removed. photos taken.
== END 2019-04-08 18:20 | disposition home or self-care (01) | DRG 710 ==
LOC: ER 12:14 → MED 14:15
PROVIDERS: ADMIT Internal Medicine; ATTEND Hospitalist
PROC: 0J9N0ZZ Drainage of Right Lower Leg Subcutaneous Tissue and Fascia, Open Approach (ICD-10-PCS; principal; 2019-04-01)
PROC: 0J9N0ZZ Drainage of Right Lower Leg Subcutaneous Tissue and Fascia, Open Approach (ICD-10-PCS; 2019-04-06)
PROC: 30233N1 Transfusion of Nonautologous Red Blood Cells into Peripheral Vein, Percutaneous Approach (ICD-10-PCS; 2019-04-06)
DX: A41.9 Sepsis, unspecified organism (principal); N17.0 Acute kidney failure with tubular necrosis; K72.00 Acute and subacute hepatic failure without coma; G93.41 Metabolic encephalopathy; E43 Unspecified severe protein-calorie malnutrition; D69.6 Thrombocytopenia, unspecified; E87.2 Acidosis; E83.42 Hypomagnesemia; L02.415 Cutaneous abscess of right lower limb; E87.1 Hypo-osmolality and hyponatremia; L03.115 Cellulitis of right lower limb; D64.9 Anemia, unspecified; E86.1 Hypovolemia; F19.11 Other psychoactive substance abuse, in remission; F19.10 Other psychoactive substance abuse, uncomplicated; B95.61 Methicillin susceptible Staphylococcus aureus infection as the cause of diseases classified elsewhere
CPT/HCPCS: 36415; 73590-TC; 73720-TC; 80048-TC; 80053-TC; 80076-TC; 80202-TC; 80305; 83605-TC; 83735-TC; 84100-TC; 84484-TC; 85025-TC; 85652-TC; 85730-TC; 86140-TC; 86850-TC; 86921-TC; 87040-TC; 87070-TC; 93971-TC; 97116-TC; 97530-TC; 97535-TC; A4217; A6253; A6403; A6407; A9579; G0378; J0690; J1200; J1580; J1644; J1885; J2250; J2405; J2543; J2704; J2765; J3010; J3370; J3475; J3490; J7030; J7050; J7060; P9016-BL